=== PATIENT | male | born 1945 | race Caucasian/White ===

== ENCOUNTER 2016-08-09 16:36 | Emergency (ER) | payer BC, OTHER ==
[~2016-08-09] VITALS: Ht 172.7 cm; Wt 105.0 kg
[~2016-08-09 16:36] MED LIST: DSY50 PO; FLUO40CA8 PO; OXYC-57 PO
[2016-08-09 16:46] VITALS: TEMP 36.8; Ht 172.7 cm; Wt 105.0 kg
[2016-08-09] MEDS ORDERED: ALUMINUM/MAGNESIUM SUSP 30 ML UDC PO STA (17:03)
[2016-08-09] MEDS ORDERED: LIDOCAINE HCL 2% VISC SOLN 20 ML UDC PO STA (17:03)
[2016-08-09] MEDS ORDERED: AMLO-110 PO (17:05)
[2016-08-09] MEDS ORDERED: LOSA1TAB PO (17:05)
[2016-08-09] MEDS ORDERED: CLON2TAB3 PO (17:05)
[2016-08-09] MEDS ORDERED: OXYC-57 PO (17:05)
[2016-08-09] MEDS ORDERED: VENL75CA PO (17:05)
[2016-08-09] MEDS ORDERED: VENL150C PO (17:05)
[2016-08-09] MEDS ORDERED: CLON1TAB3 PO (17:05)
[2016-08-09] MEDS ORDERED: METF750T PO (17:05)
[2016-08-09] MEDS ORDERED: CLIN1SOL23 TOP (17:05)
[2016-08-09] MEDS ORDERED: ATOR-22 PO (17:05)
[2016-08-09] MEDS ORDERED: SNQ/25 PO (17:05)
[2016-08-09] MEDS ORDERED: LATA0.009 OPB (17:05)
[2016-08-09] MEDS ORDERED: SILD100T PO (17:05)
[2016-08-09] MEDS ORDERED: AMLH/550 PO (17:05)
[2016-08-09 17:06] VITALS: O2SAT 97
[2016-08-09 17:26] LABS: BASO % 0.1 %; BASO ABS # 0.01 K/uL (0-0.2); COMPLETE YES; EOS % 0.8 %; HEMATOCRIT 43.9 % (42-52); IG% 0.2 %; LYMPH % 22.1 %; LYMPH ABS # 1.85 K/uL (1.2-3.4); MEAN CELL VOLUME 91.8 fL (80-100); MEAN CORPUSCULAR HEMOGLOBIN 31.8 pg (25-34); MEAN CORPUSCULAR HGB CONC 34.6 g/dl (32-36); MEAN PLATELET VOLUME 10.4 fL (7.4-10.4); MONO % 7.4 %; NEUT % 69.4 %; PLATELET COUNT 174 K/uL (130-400); RED BLOOD COUNT 4.78 M/uL (4.7-6.1); WHITE BLOOD COUNT 8.36 K/uL (4.8-10.8)
[2016-08-09 17:42] LABS: ALT/SGPT 28 U/L (12-78); BLOOD UREA NITROGEN 23 mg/dl (7-18); BUN/CREATININE RATIO 23.2 (10-20); CALCIUM 8.2 mg/dl (8.5-10.1); CARBON DIOXIDE 34 mmol/L (21-32); CHLORIDE 102 mmol/L (98-107); GLUCOSE 101 mg/dl (70-99); POTASSIUM 3.1 mmol/L (3.5-5.1); SODIUM 145 mmol/L (136-145)
--- NOTE | 2016-08-09 17:45 | DIAGNOSTIC IMAGING REPORT ---
CHEST ONE VIEW PORTABLE CLINICAL HISTORY: Fever. Sepsis. COMPARISON STUDY: Chest radiograph October 22, 2006. FINDINGS: No pneumothorax or pleural effusion is present. No consolidation. There is no evidence of pulmonary edema. Mild cardiomegaly is noted. IMPRESSION: 1. No acute cardiopulmonary findings. 2. Mild cardiomegaly. Electronically signed by: Mazin Pisano M.D. 08/09/2016 5:44 PM Dictated Date/Time: 08/09/2016 5:43 PM
[2016-08-09 17:47] LABS: ALKALINE PHOSPHATASE 60 U/L (45-117); AST/SGOT 12 U/L (15-37)
--- NOTE | 2016-08-09 18:27 | EMERGENCY ROOM VISIT NOTE ---
History Report prepared by Dima: Julita Zaidi Under the Supervision of: Dr. Pérez Low D.O. First contact with patient: 16:53 Chief Complaint: GI ASSESSMENT Stated Complaint: PERSISTENT HEARTBURN History of Present Illness The patient is a 70 year old male who presents to the Emergency Room for a GI assessment. The patient reports burning chest pain that started at 1am this morning. He ate a fish sandwich at 7pm and went to bed at 10pm. He developed a burning pain in his chest that woke him up. He took a Pepto Bismol and drank baking soda with water without any relief of his symptoms. About six hours ago he had one episode of vomiting and states that it was mostly mucous. He also reports hiccups that have resolved. He has been feeling more tired than usual today and states that he took a 2-3 hour nap. He is still feeling tired. Movement exacerbates his pain, while rest helps to alleviate it. The patient rates his pain as a 4/10 in severity. He called a tele-nurse and was advised to come to the ED for further evaluation. Patient denies any shortness of breath, diaphoresis, palpitations, and lightheadedness. Patient denies any significant cardiac history. He has never had chest pain with exertion before. He has had heartburn in the past, but states that he has not experienced an episode of heartburn for a few years. Source of History: patient Onset: 1 AM this morning Position: chest Symptom Intensity: 4/10 Quality: burning Timing: constant Modifying Factors (Worsening): movement Modifying Factors (Relieving): rest Associated Symptoms: + fatigue, + vomiting, No SOB, No diaphoresis Note: Patient also states a case of hiccups that has resolved. Patient denies palpitations and lightheadedness. Review of Systems See HPI for pertinent positives & negatives. A total of 10 systems reviewed and were otherwise negative. Past Medical & Surgical Medical Problems: (1) Hiatal hernia (2) Hypertension Family History No pertinent history stated. Social History Smoking Status: Former Smoker Current/Historical Medications Scheduled Amiloride/Hctz (Amiloride/Hydrochlorothia 5-50 mg), 0.5 TAB PO DAILY Amlodipine (Norvasc), 5 MG PO DAILY Atorvastatin (Lipitor), 20 MG PO DAILY Clonazepam (Klonopin), 1 MG PO QAM Clonazepam (Klonopin), 2 MG PO HS Doxepin (Sinequan), 25 MG PO HS Latanoprost (Xalatan 0.005% Oph Tory), 1 DROPS OPB QPM Losartan Potassium (Cozaar), 25 MG PO DAILY Metformin Hcl (Glucophage Er), 1,500 MG PO DAILY Oxycodone/Acetaminophen 5MG/325MG (Percocet 5MG/325MG), 1 TABLET PO BID Sildenafil Citrate (Viagra), 100 MG PO UD Venlafaxine Hcl (Effexor Xr), 1 CAP PO DAILY Venlafaxine Hcl (Effexor Xr), 1 CAP PO DAILY Scheduled PRN Clindamycin Phosphate (Topical (Clindamycin Phosphate), 1 APPLN TOP BID PRN for PRN Allergies Coded Allergies: Moxifloxacin (Verified Allergy, Unknown, ., 08/09/16) Physical Exam Vital Signs Date Time Temp Pulse Resp B/P Pulse Ox O2 Delivery O2 Flow Rate FiO2 08/09/16 18:30 92 18 152/99 96 Room Air 08/09/16 17:06 97 Room Air 08/09/16 16:46 36.8 105 18 148/100 97 Room Air Physical Exam CONSTITUTIONAL/VITAL SIGNS: Reviewed / noted above. GENERAL: Non-toxic in appearance. INTEGUMENTARY: Warm, dry, and [place]. HEAD: Normocephalic. EYES: without scleral icterus or trauma. ENT/OROPHARYNX: clear and moist. LYMPHADENOPATHY/NECK: Is supple without lymphadenopathy or meningismus. RESPIRATORY: Lungs clear and equal. CARDIOVASCULAR: Regular rate and rhythm. GI/ABDOMEN: Soft and nontender. No organomegaly or pulsatile mass. No rebound or guarding. Normal bowel sounds. EXTREMITIES: Warm and well perfused. BACK: No CVA tenderness. NEUROLOGICAL: Intact without focal deficits. PSYCHIATRIC: normal affect. MUSCULOSKELETAL: Normally developed with good muscle tone. Medical Decision & Procedures ER Provider Diagnostic Interpretation: Radiology results as stated below per my review and radiologist interpretation: CHEST ONE VIEW PORTABLE CLINICAL HISTORY: Fever. Sepsis. COMPARISON STUDY: Chest radiograph October 22, 2006. FINDINGS: No pneumothorax or pleural effusion is present. No consolidation. There is no evidence of pulmonary edema. Mild cardiomegaly is noted. IMPRESSION: 1. No acute cardiopulmonary findings. 2. Mild cardiomegaly. Electronically signed by: Mazin Pisano M.D. 08/09/2016 5:44 PM Dictated Date/Time: 08/09/2016 5:43 PM Laboratory Results 08/09/16 17:16 Red Blood Count 4.78, Mean Corpuscular Volume 91.8, Mean Corpuscular Hemoglobin 31.8, Mean Corpuscular Hemoglobin Concent 34.6, Mean Platelet Volume 10.4, Neutrophils (%) (Auto) 69.4, Lymphocytes (%) (Auto) 22.1, Monocytes (%) (Auto) 7.4, Eosinophils (%) (Auto) 0.8, Basophils (%) (Auto) 0.1, Neutrophils # (Auto) 5.79, Lymphocytes # (Auto) 1.85, Monocytes # (Auto) 0.62, Eosinophils # (Auto) 0.07, Basophils # (Auto) 0.01 08/09/16 17:16 Test 08/09/16 17:16 White Blood Count 8.36 K/uL (4.8-10.8) Red Blood Count 4.78 M/uL (4.7-6.1) Hemoglobin 15.2 g/dL (14.0-18.0) Hematocrit 43.9 % (42-52) Mean Corpuscular Volume 91.8 fL (80-100) Mean Corpuscular Hemoglobin 31.8 pg (25-34) Mean Corpuscular Hemoglobin Concent 34.6 g/dl (32-36) Platelet Count 174 K/uL (130-400) Mean Platelet Volume 10.4 fL (7.4-10.4) Neutrophils (%) (Auto) 69.4 % Lymphocytes (%) (Auto) 22.1 % Monocytes (%) (Auto) 7.4 % Eosinophils (%) (Auto) 0.8 % Basophils (%) (Auto) 0.1 % Neutrophils # (Auto) 5.79 K/uL (1.4-6.5) Lymphocytes # (Auto) 1.85 K/uL (1.2-3.4) Monocytes # (Auto) 0.62 K/uL (0.11-0.59) Eosinophils # (Auto) 0.07 K/uL (0-0.5) Basophils # (Auto) 0.01 K/uL (0-0.2) RDW Standard Deviation 44.1 fL (36.4-46.3) RDW Coefficient of Variation 13.1 % (11.5-14.5) Immature Granulocyte % (Auto) 0.2 % Immature Granulocyte # (Auto) 0.02 K/uL (0.00-0.02) Prothrombin Time 11.0 SECONDS (9.0-12.0) Prothromb Time International Ratio 1.0 (0.9-1.1) Activated Partial Thromboplast Time 27.1 SECONDS (21.0-31.0) Partial Thromboplastin Ratio 1.0 Anion Gap 9.0 mmol/L (3-11) Est Creatinine Clear Calc Drug Dose 81.9 ml/min Estimated GFR () 88.6 Estimated GFR (Non- 76.5 BUN/Creatinine Ratio 23.2 (10-20) Calcium Level 8.2 mg/dl (8.5-10.1) Total Bilirubin 0.6 mg/dl (0.2-1) Direct Bilirubin 0.1 mg/dl (0-0.2) Aspartate Amino Transf (AST/SGOT) 12 U/L (15-37) Alanine Aminotransferase (ALT/SGPT) 28 U/L (12-78) Alkaline Phosphatase 60 U/L (45-117) Total Creatine Kinase 41 U/L (39-308) Creatine Kinase MB < 0.5 ng/ml (0.5-3.6) Creatine Kinase MB Ratio (0-3.0) Troponin I < 0.015 ng/ml (0-0.045) Total Protein 6.5 gm/dl (6.4-8.2) Albumin 3.5 gm/dl (3.4-5.0) Lipase 131 U/L (73-393) Laboratory results as stated above per my review. Medications Administered Medications (Trade) Dose Ordered Sig/Olaf Route Start Time Stop Time Status Last Admin Dose Admin Al Hydroxide/Mg Hydroxide (Maalox Susp) 30 ml NOW STAT PO 08/09/16 17:03 08/09/16 17:04 DC 08/09/16 17:20 30 ML Lidocaine HCl (Viscous Lidocaine 2% Soln) 10 ml NOW STAT PO 08/09/16 17:03 08/09/16 17:04 DC 08/09/16 17:21 10 ML ECG Indication: chest pain Rate (beats per minute): 94 Rhythm: normal sinus Findings: 1st degree AV block, no acute ischemic change, no ectopy Comparison ECG Date: 10/22/06 Change: no significant change ED Course 1656: Previous medical records were reviewed. The patient was evaluated in room C10. A complete history and physical examination was performed. 170: Lidocaine HCl 10 ml PO, Maalox Susp 30 ml PO 1826: I reassessed the patient at this time. He is feeling better and resting comfortably. I discussed the results and treatment plan with the patient. I answered all pertaining questions that he had. He expressed understanding and verbalized agreement. The patient will be discharged home. Medical Decision the differential was considered includes acute myocardial infarction, acute coronary syndrome, myocarditis, pericarditis, pericardial effusions /tamponad, esophageal perforation, thoracic aortic dissection, pulmonary embolism, pneumonia, pneumothorax, pancreatitis, shingles, acute cholecystitis, perforated abdominal viscus. This is a 70-year-old male who presents to the ED with a chief complaint of heartburn this started around 1 AM. He states that it awoke him from sleep. It was not associated with diaphoresis, lightheadedness or dizziness. He denies any palpitations. He states he took some Pepto-Bismol as well as some baking soda and water. He was able to go back asleep and then woke this morning with the same symptoms. He states he vomited a small amount of mucus around 10 AM. His symptoms have been present throughout the day but her only mild now. He denies any worsening or association with exertion. He does report a history of hypertension. The patient's vital signs are stable. His physical exam was normal. CBC was normal. BUN is 23 and potassium was 3.1. Chemistry panel was otherwise unremarkable. Lipase is negative. Troponin is negative. A chest x-ray was negative for acute disease. EKG showed a sinus rhythm with a first-degree AV block and no acute injury. No significant change from previous. The patient was treated with a GI cocktail. He was told the results. The patient feels comfortable going home. His symptoms are felt to be not likely cardiac in nature due to all of the above. He was told to follow- up with his PCP. He was told that testing today was not productive of any future events and he should return for any recurrence chest pains or other concerns. Impression Primary Impression: Precordial chest pain Scribe Attestation The scribe's documentation has been prepared under my direction and personally reviewed by me in its entirety. I confirm that the note above accurately reflects all work, treatment, procedures, and medical decision making performed by me. Departure Information Dispostion Home / Self-Care Referrals Tuan Clifton III, M.D. (PCP) Forms HOME CARE DOCUMENTATION FORM, IMPORTANT VISIT INFORMATION Patient Instructions Chest Pain - [facility], My [facility] Additional Instructions Today's testing did not show any evidence of myocardial infarction, heart attack or heart-related process. The testing today is not predictive of any future events. Return for any chest pains, shortness of breath or any concerns about heart attack. Follow-up with your doctor for further care and evaluation in 1-2 days. Return to the emergency department for worsening or new symptoms or any concerns. You have been examined and treated today on an emergency basis only. This is not a substitute for, or an effort to provide, complete comprehensive medical care. It is impossible to recognize and treat all injuries or illnesses in a single emergency department visit. It is therefore important that you follow up closely with your doctor. Call as soon as possible for an appointment.
[2016-08-09 18:30] VITALS: BP 152/99; PULSE 92; O2SAT 96
== END 2016-08-09 18:45 | disposition home or self-care (01) ==
LOC: C.EDB 16:38 → C.EDC 18:45
DX: R07.2 Precordial pain (principal); I10 Essential (primary) hypertension; Z87.891 Personal history of nicotine dependence; Z79.899 Other long term (current) drug therapy